=== PATIENT | male | born 2000 | race American Indian/Alaskan Native ===

== ENCOUNTER 2018-12-04 17:49 | Emergency (ER) | payer OTHER ==
[2018-12-04 19:27] VITALS: BP 147/64
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
[2018-12-04] MEDS ORDERED: IBUPROFEN PO ONE ×2 (22:02)
[2018-12-04] MEDS ORDERED: FLEXERIL PO ONE (22:02)
[2018-12-04] MEDS ORDERED: FLEXERIL ONE (22:03)
[2018-12-04] MEDS ORDERED: FUL-GLO OP ONE ×2 (22:11→22:16)
[2018-12-04] MEDS ORDERED: BSS OU ONE (22:11)
[2018-12-04] MEDS ORDERED: TETRACAINE 0.5% OU ONE (22:12)
[2018-12-04] MEDS ORDERED: TETRACAINE 0.5% ONE (22:16)
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
== END 2018-12-04 23:35 | disposition home or self-care (01) ==
LOC: ED 17:49
DX: S05.02XA Injury of conjunctiva and corneal abrasion without foreign body, left eye, initial encounter (principal); S39.012A Strain of muscle, fascia and tendon of lower back, initial encounter; V49.59XA Passenger injured in collision with other motor vehicles in traffic accident, initial encounter; Y93.89 Activity, other specified; Y92.488 Other paved roadways as the place of occurrence of the external cause; Y99.8 Other external cause status